=== PATIENT | female | born 1960 | race Caucasian/White ===

== ENCOUNTER → 2017-12-04 | Outpatient (CLI) | payer OTHER | LOC: CIMAGING 16:44 | PROVIDERS: ATTEND Podiatrist | DX: M84.375A Stress fracture, left foot, initial encounter for fracture (principal); M77.32 Calcaneal spur, left foot; M19.072 Primary osteoarthritis, left ankle and foot | CPT/HCPCS: 73630-PO ==

== ENCOUNTER → 2018-01-02 | Outpatient (CLI) | payer OTHER | LOC: CIMAGING 14:10 | PROVIDERS: ATTEND Podiatrist | DX: M84.375D Stress fracture, left foot, subsequent encounter for fracture with routine healing (principal) | CPT/HCPCS: 73630-PO ==